=== PATIENT | female | born 1995 | race Caucasian/White ===

== ENCOUNTER → 2019-09-09 22:40 | Observation (INO) ==
[2019-09-09 21:53] LABS: Barbiturates Screen,Urine Negative (Negative); Benzodiazepines Screen,Urine Negative (Negative); Cannabinoid Screen,Urine Negative (Negative); Opiate Screen,Urine Negative (Negative); Phencyclidine Screen,Urine Negative (Negative)
[2019-09-09 21:59] LABS: Apearance,Urine CLOUDY (Clear); Bacteria,Urine Few /HPF (Few); Bilirubin,Urine Negative (Negative); Blood, Urine Negative (Negative); Glucose,Urine (UA) Negative (Negative); Ketones,Urine 20 mg/dL (Negative); Mucus,Urine Moderate /LPF (Occasional); Nitrite,Urine Negative (Negative); Protein,Urine 30 MG/DL; RBC,Urine 14 /HPF (0-4); Squamous Epithelial Cell,Urine Many /HPF (0-10); Urine Color Amber (Yellow); Urine Specific Gravity 1.032 (1.001-1.035); Urine Urobilinogen < 2.0 EU/DL (0.2-1.0); WBC,Urine 38 /HPF (0-6)
== END | disposition home or self-care (01) ==
LOC: N.LD
PROVIDERS: ADMIT Obstetrics & Gynecology; ATTEND Obstetrics & Gynecology

== ENCOUNTER 2019-09-12 06:38 | Inpatient (IN) ==
[2019-09-12] MEDS ORDERED: ONDANSETRON 4 MG/2 ML VIAL IV PRN (07:20)
[2019-09-12] MEDS ORDERED: MEPERIDINE 50 MG/1 ML VIAL IM PRN (07:20)
[2019-09-12] MEDS ORDERED: LACTATED RINGERS 1,000 ML IV SCH (07:30)
[2019-09-12 07:43] LABS: Basophils % 0.3 % (0.0-0.8); Eosinophils # 0.1 10*3/uL (0.0-0.87); Eosinophils % 1.4 % (0.00-10.9); Hematocrit 31.6 VOL% (35.7-47.0); Hemoglobin 10.1 GM/DL (12.0-16.0); Immature Granulocytes % 0.5 %; Immature Granulocytes Absolute 0.04 #; Lymphocytes # 1.8 10*3/uL (1.4-4.0); Lymphocytes % 22.8 % (21.3-54.2); Mean Corpuscular Volume 92.7 FL (87-102); Mean Platelet Volume 9.5 FL (9.6-12.0); Monocytes % 9.8 % (1.7-12.7); Neutrophils % 65.2 % (38.7-73.9); Platelet Count 265 T/CUMM (130-400); Red Blood Count 3.41 MC/CUMM (3.8-5.5); Red Cell Distribution Width 13.7 % (9.3-17.3); White Blood Count 7.9 T/CUMM (4-12)
[2019-09-12] MEDS: OXYTOCIN/LR 20 UNIT/1,000 ML BAG IV SCH ×2 (09:00→19:05)
[2019-09-12] MEDS ORDERED: AMPICILLIN INJ 2,000 MG in SODIUM CHLORIDE 0.9% 100 ML IV ONE (11:46)
[2019-09-12] MEDS ORDERED: FAMOTIDINE 20 MG/2 ML VIAL IV ONE (12:06)
[2019-09-12] MEDS ORDERED: CITRIC ACID/SODIUM CITRATE 30 ML UDCUP PO ONE (12:06)
[2019-09-12] MEDS ORDERED: diphenhydrAMINE 50 MG/1 ML VIAL IV PRN ×2 (12:06)
[2019-09-12] MEDS ORDERED: ePHEDrine 50 MG/ML AMP IV PRN (12:06)
[2019-09-12] MEDS ORDERED: LACTATED RINGERS 1,000 ML IV ONE (12:06)
[2019-09-12] MEDS ORDERED: hydrOXYzine HCL 25 MG/1 ML VIAL IM PRN (12:06)
[2019-09-12] MEDS ORDERED: fentaNYL 2 MCG/ROPIV 0.2% EPID 100 ML EPIDURAL SCH (12:30)
[2019-09-12 14:56] LABS: Apearance,Urine CLEAR (Clear); Bilirubin,Urine Negative (Negative); Blood, Urine Negative (Negative); Glucose,Urine (UA) Negative (Negative); Ketones,Urine Negative (Negative); Mucus,Urine Occasional /LPF (Occasional); Nitrite,Urine Negative (Negative); Protein,Urine Negative; Urine Color Straw (Yellow); Urine Specific Gravity 1.011 (1.001-1.035); Urine Urobilinogen < 2.0 EU/DL (0.2-1.0); WBC,Urine <1 /HPF (0-6)
[2019-09-12] MEDS ORDERED: AMPICILLIN INJ 1,000 MG in SODIUM CHLORIDE 0.9% 100 ML IV SCH (16:00)
[2019-09-12] MEDS ORDERED: TRANEXAMIC ACID 1,000 MG/10 ML VIAL ONE (17:29)
[2019-09-12] MEDS ORDERED: miSOPROStoL 200 MCG TABLET ONE (17:29)
[2019-09-12] MEDS ORDERED: OXYTOCIN/LR 0 UNIT/0 ML BAG IV ONE (17:29)
[2019-09-12] MEDS ORDERED: METHYLERGONOVINE 0.2 MG/1 ML AMP ONE (17:30)
[2019-09-12] MEDS ORDERED: CARBOPROST TROMETHAMINE 250 MCG/ML AMP IM ONE (17:30)
[2019-09-12] MEDS ORDERED: ACETAMINOPHEN 325 MG TABLET PO PRN (17:59)
[2019-09-12] MEDS ORDERED: BISACODYL 10 MG SUPP RECTAL PRN (17:59)
[2019-09-12] MEDS ORDERED: HYDROCORTISONE 2.5% RECTAL CREAM 30 GM TUBE TOP PRN (17:59)
[2019-09-12] MEDS ORDERED: RHO(D) IMMUNE GLOBULIN 300 MCG SYRINGE IM ONE (17:59)
[2019-09-12] MEDS ORDERED: LANOLIN 50% CREAM 0.3 OZ TUBE TOP PRN (17:59)
[2019-09-12] MEDS ORDERED: WITCH HAZEL PADS 100/JAR TOP PRN (17:59)
[2019-09-12] MEDS ORDERED: BENZOCAINE 20%/MENTHOL 0.5% SPRAY 56 GM CAN TOP PRN (17:59)
[2019-09-12] MEDS: IBUPROFEN 800 MG TABLET PO PRN (22:45)
[2019-09-13 05:49] LABS: Basophils % 0.3 % (0.0-0.8); Eosinophils # 0.1 10*3/uL (0.0-0.87); Hematocrit 28.1 VOL% (35.7-47.0); Hemoglobin 8.9 GM/DL (12.0-16.0); Immature Granulocytes % 0.3 %; Immature Granulocytes Absolute 0.03 #; Lymphocytes # 1.8 10*3/uL (1.4-4.0); Lymphocytes % 20.7 % (21.3-54.2); Mean Corpuscular HGB Conc 31.7 GM/DL (32-36); Mean Corpuscular Volume 93.4 FL (87-102); Mean Platelet Volume 9.9 FL (9.6-12.0); Monocytes % 9.6 % (1.7-12.7); Neutrophils % 68.1 % (38.7-73.9); Platelet Count 223 T/CUMM (130-400); Red Blood Count 3.01 MC/CUMM (3.8-5.5); Red Cell Distribution Width 13.9 % (9.3-17.3); White Blood Count 8.9 T/CUMM (4-12)
[2019-09-13] MEDS: IBUPROFEN 800 MG TABLET PO PRN ×2 (08:36→18:57)
[2019-09-13] MEDS: DOCUSATE SODIUM 100 MG CAPSULE PO SCH ×2 (08:37→21:02)
[2019-09-14 07:24] VITALS: BP 99/66
[2019-09-14] MEDS: DOCUSATE SODIUM 100 MG CAPSULE PO SCH (08:49)
[2019-09-14] MEDS ORDERED: INFLUENZA VIRUS VACCINE 0.5 ML SYRINGE IM ONE (09:00)
== END 2019-09-14 13:30 | disposition home or self-care (01) | DRG 560 ==
LOC: N.LDOUT 06:38 → N.LD 06:40 → N.OB 23:22
PROVIDERS: ADMIT Obstetrics & Gynecology; ATTEND Obstetrics & Gynecology